=== PATIENT | female | born 1945 | race Asian ===

== ENCOUNTER 2021-02-09 14:35 | Outpatient (CLI) | payer MEDICARE, OTHER ==
--- NOTE | 2021-02-09 14:56 | XRAY Report ---
PROCEDURE: Chest 2 View X-Ray INDICATIONS: Dry cough, shortness of breath TECHNIQUE: 2 view(s) of the chest. COMPARISON: None. FINDINGS: Surgical changes and devices: None. Lungs and pleura: No pleural effusions or pneumothorax. Cephalization of pulmonary vessels with mild ly increased interstitial markings in the lungs. Mediastinum: Mediastinal contours are normal. Heart size is borderline enlarged. Bones and chest wall: No suspicious bony abnormalities. Soft tissues appear unremarkable. IMPRESSION: Borderline enlarged heart with cephalization of pulmonary vessels and slightly increased interstitial markings, findings which suggest mild cardiogenic pulmonary edema. Correlate with BNP. I nfectious small airways disease could cause a similar appearance. Reviewed by: Justice Ortega MD on 02/09/2021 2:54 PM PDT Approved by: Justice Ortega MD on 02/09/2021 2:54 PM PDT Station ID: [id number]
[2021-02-09 20:09] LABS: BASOPHILS % (AUTO) 0.9 %; EOSINOPHILS # (AUTO) 0.1 10^3/uL (0.0-0.7); HCT - HEMATOCRIT 41.9 % (37.0-47.0); HGB - HEMOGLOBIN 13.3 g/dL (12.0-16.0); LYMPHOCYTES # (AUTO) 1.3 10^3/uL (1.5-3.5); LYMPHOCYTES % (AUTO) 28.4 %; MEAN CORPUSCULAR HEMOGLOBIN 28.8 pg (27.0-31.0); MEAN CORPUSCULAR HGB CONC 31.7 g/dL (32.0-36.0); MEAN CORPUSCULAR VOLUME 90.7 fL (81.0-99.0); MONOCYTES # (AUTO) 0.6 10^3/uL (0.0-1.0); MONOCYTES % (AUTO) 13.5 %; NEUTROPHILS # (AUTO) 2.5 10^3/uL (1.5-6.6); PLT - PLATELET COUNT 252 10^3/uL (130-450); RED BLOOD COUNT 4.62 10^6/uL (4.20-5.40); RED CELL DISTRIBUTION WIDTH 13.3 % (12.0-15.0); WHITE BLOOD COUNT 4.5 x10^3/uL (4.8-10.8)
[2021-02-09 20:17] LABS: ALBUMIN 3.8 g/dL (3.2-5.5); ALBUMIN/GLOBULIN RATIO 1.1 (1.0-2.2); BILIRUBIN,TOTAL 0.6 mg/dL (0.2-1.0); CALCIUM 8.9 mg/dL (8.5-10.3); CREATININE 0.7 mg/dL (0.4-1.0); POTASSIUM 3.6 mmol/L (3.5-5.0); TOTAL PROTEIN 7.3 g/dL (6.7-8.2)
== END 2021-02-09 14:36 | disposition home or self-care (01) ==
LOC: DI.S 14:35
PROVIDERS: ATTEND Physician Assistant Medical
DX: R91.8 Other nonspecific abnormal finding of lung field (principal); U07.1 COVID-19; I50.1 Left ventricular failure, unspecified; R06.02 Shortness of breath; I50.9 Heart failure, unspecified; R50.9 Fever, unspecified; I51.7 Cardiomegaly
CPT/HCPCS: 36415; 71046; 80053; 83880; 85025; U0004

== ENCOUNTER 2021-02-13 08:55 | Outpatient (CLI) | payer MEDICARE, OTHER | END 2021-02-13 08:56 | disposition critical access hospital (66) | LOC: EMS 08:55 | DX: R53.1 Weakness (principal); R06.00 Dyspnea, unspecified | CPT/HCPCS: A0425; A0427 ==

== ENCOUNTER 2021-02-13 09:33 | Emergency (ER) | payer MEDICARE, OTHER ==
[2021-02-13] MEDS ORDERED: SODIUM CHLORIDE 0.9% 1,000 ML IV STA ×2 (09:54→11:35)
[2021-02-13] MEDS ORDERED: IBUPROFEN 800 MG TABLET PO STA (09:54)
[2021-02-13] MEDS ORDERED: ACETAMINOPHEN 325 MG TABLET PO STA (09:54)
[2021-02-13 10:29] LABS: BASOPHILS % (AUTO) 0.3 %; HCT - HEMATOCRIT 38.5 % (37.0-47.0); HGB - HEMOGLOBIN 12.8 g/dL (12.0-16.0); LYMPHOCYTES # (AUTO) 0.7 10^3/uL (1.5-3.5); LYMPHOCYTES % (AUTO) 19.3 %; MEAN CORPUSCULAR HEMOGLOBIN 29.2 pg (27.0-31.0); MEAN CORPUSCULAR HGB CONC 33.2 g/dL (32.0-36.0); MEAN CORPUSCULAR VOLUME 87.7 fL (81.0-99.0); MONOCYTES # (AUTO) 0.3 10^3/uL (0.0-1.0); NEUTROPHILS # (AUTO) 2.6 10^3/uL (1.5-6.6); NEUTROPHILS % (AUTO) 73.1 %; PLT - PLATELET COUNT 175 10^3/uL (130-450); RED BLOOD COUNT 4.39 10^6/uL (4.20-5.40); WHITE BLOOD COUNT 3.6 x10^3/uL (4.8-10.8)
--- NOTE | 2021-02-13 10:37 | ED Physician Documentation ---
History of Present Illness - Stated complaint Stated Complaint: C+/WEAKNESS - Chief complaint Chief Complaint: Resp - History obtained from History obtained from: Patient, EMS - Additonal information Additional information: Patient comes emergency department chief complaint of feeling weak and Covid positive. Patient states she was just diagnosed with Covid about 4 days ago At the [facility]. She states she is not sure how many days she had been sick before that or if she had any sick contacts. Patient states that she is gradually felt worse over the course of the last several days. She lives at home with her . She is feels "a little" short of breath but mostly has been coughing. She also has been running fevers and states she just feels "out of it". She has a history of diabetes, but no hypertension or cardiac history. Patient is not obese. She denies nausea or vomiting. No body aches. No other complaints at this time. Review of Systems Ten Systems: 10 systems reviewed and negative Constitutional: reports: Fever, Fatigue Eyes: reports: Reviewed and negative Ears: reports: Reviewed and negative Nose: reports: Reviewed and negative Throat: reports: Reviewed and negative Cardiac: reports: Reviewed and negative Respiratory: reports: Dyspnea, Cough GI: reports: Reviewed and negative : reports: Reviewed and negative Skin: reports: Reviewed and negative Musculoskeletal: reports: Reviewed and negative Neurologic: reports: Reviewed and negative Psychiatric: reports: Reviewed and negative Endocrine: reports: Reviewed and negative Immunocompromised: reports: Reviewed and negative PD PAST MEDICAL HISTORY - Past Medical History Past Medical History: Yes Cardiovascular: Hypertension, High cholesterol Respiratory: None Neuro: None Endocrine/Autoimmune: Type 2 diabetes GI: None 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 : None HEENT: None Psych: None Musculoskeletal: None Derm: None - Past Surgical History Past Surgical History: No - Present Medications Home Medications: Ambulatory Orders Medication Instructions Recorded Confirmed Ascorbic Acid [Vitamin C] 1,000 mg PO DAILY 02/13/21 02/13/21 Aspirin EC [Ecotrin] 325 mg PO DAILY 02/13/21 02/13/21 Azithromycin [Zithromax] 0 mg PO DAILY #6 tablet 02/13/21 Cholecalciferol [Vitamin D3] 10,000 unit PO DAILY 02/13/21 02/13/21 Insulin NPH Human [NovoLIN N] 16 unit SUBQ QPM 02/13/21 02/13/21 Ivermectin 2 mg PO DAILY 02/13/21 02/13/21 Melatonin 10 mg PO HS 02/13/21 02/13/21 Potassium Chloride [K-Dur] 20 meq PO BIDWM #14 tablet 02/13/21 Pravastatin [Pravachol] 20 mg ORAL DAILY PM 02/13/21 02/13/21 hydroCHLOROthiazide [Hydrodiuril] 12.5 mg PO DAILY 02/13/21 02/13/21 metFORMIN [Glucophage] 500 mg PO BIDWM 02/13/21 02/13/21 - Allergies Allergies/Adverse Reactions: Allergies Allergy/AdvReac Type Severity Reaction Status Date / Time Sulfa (Sulfonamide Allergy Unknown Verified 02/13/21 09:44 Antibiotics) - Social History Does the pt smoke?: No Smoking Status: Never smoker Does the pt drink ETOH?: No Does the pt have substance abuse?: No - Immunizations Immunizations are current?: No PD ED PE NORMAL - Vitals Vital signs reviewed: Yes - General General: Alert and oriented X 3, No acute distress, Well developed/nourished - HEENT HEENT: Atraumatic, PERRL, EOMI, Moist mucous membranes - Neck Neck: Supple, no meningeal sign - Cardiac Cardiac: RRR, No murmur, Strong equal pulses - Respiratory Respiratory: No respiratory distress, Other (Rales bilateral bases) - Abdomen Abdomen: Soft, Non tender, Non distended - Derm Derm: Normal color, Warm and dry, No rash - Extremities Extremities: No deformity, No edema, No calf tenderness / cord - Neuro Neuro: animal 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, No motor deficit, No sensory deficit, Other (Drowsy, but answers questions clearly.) - Psych Psych: Normal mood, Normal affect Results - Vitals Vitals: Vital Signs - 24 hr 02/13/21 02/13/21 02/13/21 09:44 10:01 10:40 Temperature 38.9 C H 39.2 C H Heart Rate 74 75 62 Respiratory 19 22 18 Rate Blood Pressure 179/67 H 147/61 H 131/70 H O2 Saturation 98 95 99 02/13/21 02/13/21 02/13/21 11:09 13:20 14:00 Temperature 37.9 C 37.4 C 37.2 C Heart Rate 75 64 56 L Respiratory 22 16 19 Rate Blood Pressure 142/54 H 149/58 H 132/59 H O2 Saturation 96 96 95 02/13/21 15:18 Temperature 37.0 C Heart Rate 60 Respiratory 15 Rate Blood Pressure 138/58 H O2 Saturation 96 Oxygen O2 Source Room air - Labs Labs: Laboratory Tests 02/13/21 02/13/21 02/13/21 10:21 10:21 10:21 WBC 3.6 L RBC 4.39 Hgb 12.8 Hct 38.5 MCV 87.7 MCH 29.2 MCHC 33.2 RDW 13.0 Plt Count 175 MPV 9.0 Neut # (Auto) 2.6 Lymph # (Auto) 0.7 L Leslie # (Auto) 0.3 Eos # (Auto) 0.0 Baso # (Auto) 0.0 Absolute Nucleated RBC 0.00 Nucleated RBC % 0.0 Sodium 133 L Potassium 3.1 L Chloride 96 L Carbon Dioxide 26 Anion Gap 11.0 BUN 16 Creatinine 0.6 Estimated GFR (MDRD) 98 Glucose 151 H Lactic Acid 1.0 Calcium 8.1 L Total Bilirubin 0.8 AST 28 ALT 24 Alkaline Phosphatase 57 Total Protein 6.5 L Albumin 3.3 Globulin 3.2 Albumin/Globulin Ratio 1.0 Lipase 39 Nasal Adenovirus (PCR) Nasal B. parapertussis DNA (PCR) Nasal Coronavir 229E PCR Nasal Coronavir HKU1 PCR Nasal Coronavir NL63 PCR Nasal Coronavir OC43 PCR Nasal Enterovir/Rhinovir PCR Nasal Influenza B PCR Nasal Influenza A PCR Nasal Parainfluen 1 PCR Nasal Parainfluen 2 PCR Nasal Parainfluen 3 PCR Nasal Parainfluen 4 PCR Nasal RSV (PCR) Nasal B.pertussis DNA PCR Nasal C.pneumoniae (PCR) Shun Human Metapneumo PCR Nasal M.pneumoniae (PCR) Nasal SARS-CoV-2 (PCR) Serum Ketones NEGATIVE 02/13/21 10:40 WBC RBC Hgb Hct MCV MCH MCHC RDW Plt Count MPV Neut # (Auto) Lymph # (Auto) Leslie # (Auto) Eos # (Auto) Baso # (Auto) Absolute Nucleated RBC Nucleated RBC % Sodium Potassium Chloride Carbon Dioxide Anion Gap BUN Creatinine Estimated GFR (MDRD) Glucose Lactic Acid Calcium Total Bilirubin AST ALT Alkaline Phosphatase Total Protein Albumin Globulin Albumin/Globulin Ratio Lipase Nasal Adenovirus (PCR) NOT DETECTED Nasal B. parapertussis DNA (PCR) NOT DETECTED Nasal Coronavir 229E PCR NOT DETECTED Nasal Coronavir HKU1 PCR NOT DETECTED Nasal Coronavir NL63 PCR NOT DETECTED Nasal Coronavir OC43 PCR NOT DETECTED Nasal Enterovir/Rhinovir PCR NOT DETECTED Nasal Influenza B PCR NOT DETECTED Nasal Influenza A PCR NOT DETECTED Nasal Parainfluen 1 PCR NOT DETECTED Nasal Parainfluen 2 PCR NOT DETECTED Nasal Parainfluen 3 PCR NOT DETECTED Nasal Parainfluen 4 PCR NOT DETECTED Nasal RSV (PCR) NOT DETECTED Nasal B.pertussis DNA PCR NOT DETECTED Nasal C.pneumoniae (PCR) NOT DETECTED Shun Human Metapneumo PCR NOT DETECTED Nasal M.pneumoniae (PCR) NOT DETECTED Nasal SARS-CoV-2 (PCR) DETECTED A Serum Ketones - Rads (name of study) cxr Radiology: Final report received, EMP read indepedently, See rad report PD MEDICAL DECISION MAKING - ED course Complexity details: reviewed results, re-evaluated patient, considered differential, d/w patient ED course: The patient was significantly febrile in the emergency department, but was not hypotensive or tachycardic. She was treated with ibuprofen, Tylenol, and IV fluids, and worked up with labs, including blood cultures, lactate, and serum ketones, and also, she was worked up with chest x-ray and respiratory PCR panel. The patient was found to be feeling much better after IV fluids and defervesced since. She was positive for Covid which was not surprising. Her lactic acid level and serum ketones were both negative. Laboratory studies were otherwise unremarkable except for a mildly decreased potassium at 3.1. She was given replacement for this. Her chest x-ray did show possible pneumonia superimposed on patchy viral changes in both lungs, and so she was given IV anti biotics for this. I discussed with the patient and her the findings. 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 We have also discussed the usual indications for return. Departure - Departure Disposition: 01 Home, Self Care Clinical Impression: COVID Pneumonia Qualifiers: Pneumonia type: due to unspecified organism Laterality: bilateral Lung location: lower lobe of lung Qualified Code(s): J18.9 - Pneumonia, unspecified organism Condition: Stable Instructions: ED Pneumonia Adult, COVID-19 [facility] Prescriptions: Potassium Chloride [K-Dur] 20 meq PO BIDWM #14 tablet Azithromycin [Zithromax] 0 mg PO DAILY #6 tablet Comments: Your labs look quite good today. Your chest x-ray shows some findings that are consistent with Covid, but since a small area of pneumonia from bacterial source cannot be ruled out, we have started you on antibiotics out of an abundance of caution. At this point in time, your oxygen levels are good and your other vital signs also look good. You were found to have a significant fever today and have been treated for that with Tylenol and ibuprofen. You were also given 2 L of IV fluids. It is very important that you stay hydrated while you are sick. You should be aiming to drink 8 to 10 cups of water every day. You should also consider taking Tylenol 650 mg every 4 hours and/or ibuprofen 600 mg every 6 hours as needed for fever. This will help you feel better and also help prevent dehydration. If you feel as though you are becoming very short of breath, especially increasingly so, you should return for reevaluation. Please quarantine until you are feeling better or for 2 weeks, which ever is longer. Anybody who lives in your household should also quarantine, especially if unvaccinated. Discharge Date/Time: 02/13/21 15:12
--- NOTE | 2021-02-13 10:40 | XRAY Report ---
PROCEDURE: Chest 1 View X-Ray INDICATIONS: Chest pain TECHNIQUE: One view of the chest was acquired. COMPARISON: 02/09/2021 FINDINGS: Surgical changes and devices: None. Lungs and pleura: New patchy increased interstitial and air space opacities in both lungs, slightly m ore pronounced on the right. No visible pleural effusion or findings or pneumothorax. Mediastinum: Mediastinal contours appear normal. Heart size is normal. Bones and chest wall: No suspicious bony lesions. Overlying soft tissues appear unremarkable. IMPRESSION: New patchy increased interstitial and airspace opacities. Findings would be consistent with COVID-19 pneumonia in the appropriate clinical setting, although any viral or bacterial pneumonia could cause a similar appearance, in addition to pulmonary edema. Reviewed by: Justice Ortega MD on 02/13/2021 10:39 AM PDT Approved by: Justice Ortega MD on 02/13/2021 10:39 AM PDT Station ID: [id number]
[2021-02-13 10:45] LABS: ALBUMIN 3.3 g/dL (3.2-5.5); ALKALINE PHOSPHATASE 57 IU/L (42-121); ALT ALANINE AMINOTRANSFERASE 24 IU/L (10-60); AST ASPARTATE AMINOTRANSFERASE 28 IU/L (10-42); BILIRUBIN,TOTAL 0.8 mg/dL (0.2-1.0); BUN - BLOOD UREA NITROGEN 16 mg/dL (6-20); CALCIUM 8.1 mg/dL (8.5-10.3); CARBON DIOXIDE - CO2 26 mmol/L (21-32); CHLORIDE 96 mmol/L (101-111); CREATININE 0.6 mg/dL (0.4-1.0); GFR - MDRD 98 (>89); GLUCOSE 151 mg/dL (70-100); LIPASE 39 U/L (22-51); POTASSIUM 3.1 mmol/L (3.5-5.0); SODIUM 133 mmol/L (135-145); TOTAL PROTEIN 6.5 g/dL (6.7-8.2)
[2021-02-13 10:49] LABS: KETONES, SERUM (ACETEST) NEGATIVE (NEGATIVE)
[2021-02-13] MEDS ORDERED: POTASSIUM CHLORIDE 20 MEQ TABLET PO STA (11:33)
[2021-02-13] MEDS ORDERED: AZITHROMYCIN 250 MG TABLET PO STA (11:35)
[2021-02-13] MEDS ORDERED: cefTRIAXone 2 GM in SODIUM CHLORIDE 0.9% MINIBAG 100 ML IV STA (11:35)
[2021-02-13 11:42] LABS: CORONAVIRUS 229E-RESP PCR NOT DETECTED; CORONAVIRUS HKU1-RESP PCR NOT DETECTED; CORONAVIRUS NL63-RESP PCR NOT DETECTED; CORONAVIRUS OC43-RESP PCR NOT DETECTED
[2021-02-13 11:43] LABS: B. PARAPERTUSSIS- RESP PCR PAN NOT DETECTED; B. PERTUSSIS- RESP PCR PANEL NOT DETECTED; C. PNEUMONIAE- RESP PCR PANEL NOT DETECTED; HUMAN METAPNEUMOVIRUS NOT DETECTED; INFLUENZA A- RESP PCR PANEL NOT DETECTED; INFLUENZA B - RESP PCR PANEL NOT DETECTED; M. PNEUMONIAE- RESP PCR PANEL NOT DETECTED; PARAINFLUENZA VIRUS 1 NOT DETECTED; PARAINFLUENZA VIRUS 2 NOT DETECTED; PARAINFLUENZA VIRUS 3 NOT DETECTED; PARAINFLUENZA VIRUS 4 NOT DETECTED; RHINOVIRUS/ENTEROVIRUS NOT DETECTED; RSV- RESP PCR PANEL NOT DETECTED; SARS-CoV-2 -RESP PCR PANEL DETECTED
[2021-02-13] MEDS ORDERED: cefTRIAXone 2 GM VIAL ONE (11:50)
[2021-02-13] MEDS ORDERED: [UNRECOGNIZED DRUG - OTHER] IV ONE (12:15)
[2021-02-13 15:27] VITALS: BP 138/58
== END 2021-02-13 15:12 | disposition home or self-care (01) ==
LOC: EDUNIT# → ED 09:33
DX: U07.1 COVID-19 (principal); J12.82 Pneumonia due to coronavirus disease 2019; I10 Essential (primary) hypertension; E11.9 Type 2 diabetes mellitus without complications; Z79.4 Long term (current) use of insulin
CPT/HCPCS: 36415; 71045; 80053; 82009; 83605; 83690; 85025; 87040; 87631; 96361; 96365; 99284; A9270; J7040; M0243; Q0243; 0202U

== ENCOUNTER 2022-02-06 13:44 | Outpatient (CLI) | payer MEDICARE, OTHER ==
--- NOTE | 2022-02-06 15:11 | XRAY Report ---
PROCEDURE: Calcaneus LT INDICATIONS: ACUTE ACHILLES TENDON PAIN TECHNIQUE: Two views of the calcaneus were acquired. COMPARISON: None FINDINGS: Bones: No fractures or dislocations. No suspicious bony lesions. Calcaneal spurring is present. Soft tissues: No suspicious calcifications. Achilles tendon appears normal. IMPRESSION: Calcaneal spurring is present, which may indicate plantar fasciitis. This could be further assessed w ith MRI, if clinically indicated. No acute fracture. No osseous lesion. If symptoms and/or clinical s uspicion for pathology continue, further assessment with repeat plain films, or advanced imaging (e.g ., CT, MRI, or bone scan) is recommended for further assessment. Reviewed by: Annie Knowles MD on 02/06/2022 3:09 PM PDT Approved by: Annie Knowles MD on 02/06/2022 3:09 PM PDT Station ID: [id number]
== END 2022-02-06 13:45 | disposition home or self-care (01) ==
LOC: DI 13:44
PROVIDERS: ATTEND Podiatrist
DX: M67.874 Other specified disorders of tendon, left ankle and foot (principal); M77.32 Calcaneal spur, left foot

== ENCOUNTER 2022-03-19 08:24 | Outpatient (CLI) | payer MEDICARE, OTHER ==
--- NOTE | 2022-03-19 20:18 | MRI Report ---
PROCEDURE: Lower Leg (Tib-Fib) LT W/O INDICATIONS: ACHILLES TENDONITIS TECHNIQUE: Noncontrast coronal and sagittal T1 spin echo and STIR; axial T1 spin echo and T2 fast spin echo with fat saturation through the left lower leg. COMPARISON: Left calcaneus radiographs 02/06/2022 FINDINGS: Image quality: Excellent. Bones: The visualized bone marrow demonstrates normal signal on all sequences. The overlying cortex appears intact. No fractures lines or intra-osseous lesions. Soft tissues: There is marked thickening of the Achilles tendon just distal to the myotendinous junc tion with intrasubstance fluid signal intensity, consistent with tendinosis and superimposed partial tearing. The calcaneal insertion is only partially included, but appears intact. The plantaris tendon is not definitely visualized. Trace fluid is seen between the medial head of gastrocnemius muscle an d the soleus muscle. Mild generalized grade 2 fatty infiltration of the lower leg musculature without significant loss of muscle bulk. Subcutaneous soft tissue edema is seen throughout the distal lower leg. IMPRESSION: 1.Partial intrasubstance tearing of the Achilles tendon near the myotendinous junction superimposed o n chronic tendinosis. 2.Plantaris tendon is not well-visualized and is likely completely torn. Reviewed by: Lincoln Yung MD on 03/19/2022 7:17 PM VINOD Approved by: Lincoln Yung MD on 03/19/2022 7:17 PM VINOD Station ID: [id number]
== END 2022-03-19 08:25 | disposition home or self-care (01) ==
LOC: DI 08:24
PROVIDERS: ATTEND Podiatrist
DX: S86.012A Strain of left Achilles tendon, initial encounter (principal)

== ENCOUNTER 2022-04-03 11:28 | Outpatient (CLI) | payer MEDICARE, OTHER ==
[2022-04-03 14:54] LABS: BILIRUBIN,URINE NEGATIVE (NEGATIVE); GLUCOSE, URINE (UA) >=1000 mg/dL (NEGATIVE); KETONES,URINE (UA) TRACE mg/dL (NEGATIVE); LEUKOCYTE ESTERASE, URINE NEGATIVE (NEGATIVE); NITRITE,URINE NEGATIVE (NEGATIVE); OCCULT BLOOD,URINE SMALL (NEGATIVE); PROTEIN,URINE NEGATIVE (NEGATIVE); UROBILINOGEN,URINE 0.2 (NORMAL) E.U./dL (NORMAL)
[2022-04-03 14:57] LABS: CLARITY,URINE CLEAR (CLEAR)
[2022-04-03 15:11] LABS: BACTERIA,URINE Few /HPF (None Seen); RBC,URINE 0-5 /HPF (0-5); SQUAMOUS EPITHELIAL CELL,UR NONE SEEN (<= Few); WBC,URINE 0-3 /HPF (0-5)
== END 2022-04-03 23:59 | disposition home or self-care (01) ==
LOC: LAB.S 11:28
PROVIDERS: ATTEND Emergency Medicine
DX: R30.0 Dysuria (principal)
CPT/HCPCS: 81001; 87086

== ENCOUNTER 2022-04-11 14:50 | Outpatient (CLI) | payer MEDICARE, OTHER ==
[2022-04-11 19:43] LABS: BILIRUBIN,URINE NEGATIVE (NEGATIVE); GLUCOSE, URINE (UA) >=1000 mg/dL (NEGATIVE); KETONES,URINE (UA) NEGATIVE (NEGATIVE); LEUKOCYTE ESTERASE, URINE NEGATIVE (NEGATIVE); NITRITE,URINE NEGATIVE (NEGATIVE); OCCULT BLOOD,URINE TRACE-INTA (NEGATIVE); PROTEIN,URINE NEGATIVE (NEGATIVE); UROBILINOGEN,URINE 0.2 (NORMAL) E.U./dL (NORMAL)
[2022-04-11 20:05] LABS: BACTERIA,URINE None Seen /HPF (None Seen); CLARITY,URINE CLEAR (CLEAR); RBC,URINE None Seen /HPF (0-5); SQUAMOUS EPITHELIAL CELL,UR NONE SEEN (<= Few); WBC,URINE 0-3 /HPF (0-5)
== END 2022-04-11 14:51 | disposition home or self-care (01) ==
LOC: LAB.S 14:50
PROVIDERS: ATTEND Emergency Medicine
DX: R30.0 Dysuria (principal); R31.9 Hematuria, unspecified
CPT/HCPCS: 81001; 87086

== ENCOUNTER 2022-07-28 06:02 | Outpatient (CLI) | payer MEDICARE, OTHER | END 2022-07-28 06:03 | disposition critical access hospital (66) | LOC: EMS 06:02 | DX: R53.1 Weakness (principal); R50.9 Fever, unspecified | CPT/HCPCS: A0425; A0429 ==

== ENCOUNTER 2022-07-28 06:35 | Emergency (ER) | payer MEDICARE, OTHER ==
--- OUTSIDE RECORDS SUMMARY | 2022-07-28 07:11 | EXTERNAL MEDICAL SUMMARY RPT | Continuity of Care Document ---
:1945 Author Organization [facility] Address [address] [place] [address] Phone Care Team Providers Name Role Phone Unavailable Unavailable Unavailable Manuel Patient Registrar, Maya Unavailable Unavailab Gem Vital, Sarthak Unavailable Unavailable Mahogany Rn, Or, Ana Unavailable Unavailable Mahogany Rn, Or, Ana Unavailable Unavailable Manuel Patient Registrar, Maya Unavailable Unavailab kostas Vides Rn, Or, Ana Unavailable Unavailable Mahogany Rn, Or, Ana Unavailable Unavailable Mahogany Rn, Or, Ana Unavailable Unavailable Allergies and Intolerances date description facility type (no date) CHLOÉ INHIBITORS [facility] (unknown) Services Ronen (no date) GLYBURIDE [facility] (unknown) Services Ronen Encounters No information. Functional Status No information. Immunizations No information. Medications date description facility 2022-04-30 00:00 insulin regular hum u-500 conc [facility] 2022-05-01 00:00 insulin regular hum u-500 conc [facility] Services [facility] 2022-06-17 00:00 insulin regular hum u-500 conc [facility] Ancillary Services [facility] 2022-06-17 00:00 insulin regular hum u-500 conc [facility] Services [facility] 2022-06-19 00:00 insulin regular hum u-500 conc [facility] Services [facility] 2022-06-19 00:00 insulin regular hum u-500 conc [facility] Services [facility] 2022-06-19 00:00 insulin regular hum u-500 conc [facility] Services C georgiana 2022-06-19 00:00 insulin regular hum u-500 conc [facility] Services [facility] 2022-06-20 00:00 insulin regular hum u-500 conc [facility] Anc[facility] Services sara 2022-06-17 00:00 insulin glargine [facility] Anc[facility] Services [facility] sara 2022-06-17 00:00 insulin glargine [facility] Anc[facility] Services C sara 2022-06-19 00:00 insulin glargine [facility] Anc[facility] Services C sara 2022-06-19 00:00 insulin glargine [facility] Services C sara 2022-06-19 00:00 insulin glargine [facility] Services C sara 2022-06-19 00:00 insulin glargine [facility] Services C sara 2022-06-20 00:00 insulin glargine [facility] Services C sara 2022-04-30 00:00 hydrochlorothiazide [facility] Anc[facility] Services C sara 2022-05-01 00:00 hydrochlorothiazide [facility] C sara 2022-06-17 00:00 hydrochlorothiazide [facility] C sara 2022-06-17 00:00 hydrochlorothiazide [facility] C sara 2022-06-19 00:00 hydrochlorothiazide [facility] C sara 2022-06-19 00:00 hydrochlorothiazide [facility] C sara 2022-06-19 00:00 hydrochlorothiazide [facility] C sara 2022-06-19 00:00 hydrochlorothiazide [facility] C sara 2022-06-20 00:00 hydrochlorothiazide [facility] Services C sara 2022-06-17 00:00 hydrochlorothiazide [facility] C sara 2022-06-17 00:00 hydrochlorothiazide [facility] C sara 2022-06-19 00:00 hydrochlorothiazide [facility] C sara 2022-06-19 00:00 hydrochlorothiazide [facility] C sara 2022-06-19 00:00 hydrochlorothiazide [facility] C sara 2022-06-19 00:00 hydrochlorothiazide [facility] C sara 2022-06-20 00:00 hydrochlorothiazide [facility] C sara 2022-06-19 00:00 sodium,potassium,mag sulfates [facility] Services C sara 2022-06-19 00:00 sodium,potassium,mag sulfates [facility] Services C sara 2022-06-19 00:00 sodium,potassium,mag sulfates [facility] Services C sara 2022-04-30 00:00 hydrochlorothiazide [facility] C sara 2022-05-01 00:00 hydrochlorothiazide [facility] C sara 2022-06-17 00:00 hydrochlorothiazide [facility] C sara 2022-06-17 00:00 hydrochlorothiazide [facility] C sara 2022-06-19 00:00 hydrochlorothiazide [facility] C sara 2022-06-19 00:00 hydrochlorothiazide [facility] Services Jill ruiz 2022-06-19 00:00 hydrochlorothiazide [facility] C sara 2022-06-19 00:00 hydrochlorothiazide [facility] C sara 2022-06-20 00:00 hydrochlorothiazide [facility] Jill ruiz 2022-06-19 00:00 sodium,potassium,mag sulfates [facility] Services C sara 2022-06-19 00:00 sodium,potassium,mag sulfates [facility] C sara 2022-06-19 00:00 sodium,potassium,mag sulfates [facility] Services C sara 2022-04-30 00:00 insulin regular hum u-500 conc [facility] Services C sara 2022-05-01 00:00 insulin regular hum u-500 conc [facility] C sara 2022-06-17 00:00 insulin regular hum u-500 conc [facility] C sara 2022-06-17 00:00 insulin regular hum u-500 conc [facility] C sara 2022-06-19 00:00 insulin regular hum u-500 conc [facility] C sara 2022-06-19 00:00 insulin regular hum u-500 conc [facility] C sara 2022-06-19 00:00 insulin regular hum u-500 conc [facility] Services C sara 2022-06-19 00:00 insulin regular hum u-500 conc [facility] C sara 2022-06-20 00:00 insulin regular hum u-500 conc [facility] Services C sara 2022-06-17 00:00 potassium chloride [facility] Anc[facility] Services C sara 2022-06-17 00:00 potassium chloride [facility] Anc[facility] Services C sara 2022-06-19 00:00 potassium chloride [facility] Anc[facility] Services C sara 2022-06-19 00:00 potassium chloride [facility] Services C sara 2022-06-19 00:00 potassium chloride [facility] Services C sara 2022-06-19 00:00 potassium chloride [facility] Services C sara 2022-06-20 00:00 potassium chloride [facility] Services C sara 2022-06-17 00:00 insulin glargine [facility] Services C sara 2022-06-17 00:00 insulin glargine [facility] Services C sara 2022-06-19 00:00 insulin glargine [facility] Services C sara 2022-06-19 00:00 insulin glargine [facility] Services C sara 2022-06-19 00:00 insulin glargine [facility] Services C sara 2022-06-19 00:00 insulin glargine [facility] Services C sara 2022-06-20 00:00 insulin glargine [facility] C sara 2022-04-30 00:00 insulin regular hum u-500 conc [facility] C sara 2022-05-01 00:00 insulin regular hum u-500 conc [facility] C sara 2022-06-17 00:00 insulin regular hum u-500 conc [facility] C sara 2022-06-17 00:00 insulin regular hum u-500 conc [facility] C sara 2022-06-19 00:00 insulin regular hum u-500 conc [facility] C sara 2022-06-19 00:00 insulin regular hum u-500 conc [facility] C sara 2022-06-19 00:00 insulin regular hum u-500 conc [facility] C sara 2022-06-19 00:00 insulin regular hum u-500 conc [facility] C sara 2022-06-20 00:00 insulin regular hum u-500 conc [facility] C sara 2022-06-17 00:00 potassium chloride [facility] Anc[facility] Services C sara 2022-06-17 00:00 potassium chloride [facility] Anc[facility] Services C sara 2022-06-19 00:00 potassium chloride [facility] Anc[facility] Services C sara 2022-06-19 00:00 potassium chloride [facility] Anc[facility] Services C sara 2022-06-19 00:00 potassium chloride [facility] Prim [facility] & Anc[facility] Services C sara 2022-06-19 00:00 potassium chloride Walk[facility]In Clinic [facility] Care & Ancillary Services C sara 2022-06-20 00:00 potassium chloride Walk[facility]In Clinic [facility] Care & Ancillary Services C sara 2022-06-17 00:00 insulin glargine [facility] Care & Ancillary Services C sara 2022-06-17 00:00 insulin glargine [facility] Care [facility] Ancillary Services C sara 2022-06-19 00:00 insulin glargine Walk[facility]In Clinic [facility] Care & Ancillary Services C sara 2022-06-19 00:00 insulin glargine Walk[facility]In [facility] Care & Ancillary Services C sara 2022-06-19 00:00 insulin glargine Walk[facility]In [facility] Care & Ancillary Services C sara 2022-06-19 00:00 insulin glargine Walk[facility]In Clinic [facility] Care & Ancillary Services C sara 2022-06-20 00:00 insulin glargine Walk[facility]In [facility] Care & Ancillary Services C sara 2022-04-30 00:00 insulin regular hum u-500 conc [facility] Ancillary Services C sara 2022-05-01 00:00 insulin regular hum u-500 conc [facility] Services C sara 2022-06-17 00:00 insulin regular hum u-500 conc [facility] Services C sara 2022-06-17 00:00 insulin regular hum u-500 conc [facility] Services C sara 2022-06-19 00:00 insulin regular hum u-500 conc [facility] Services C sara 2022-06-19 00:00 insulin regular hum u-500 conc [facility] Services C sara 2022-06-19 00:00 insulin regular hum u-500 conc [facility] Services C sara 2022-06-19 00:00 insulin regular hum u-500 conc [facility] Services C sara 2022-06-20 00:00 insulin regular hum u-500 conc [facility] Services C sara 2022-04-30 00:00 metformin [facility] Anc[facility] Services C sara 2022-05-01 00:00 metformin [facility] Anc[facility] Services C sara 2022-06-17 00:00 metformin [facility] Anc[facility] Services C sara 2022-06-17 00:00 metformin [facility] Anc[facility] Services C sara 2022-06-19 00:00 metformin [facility] Anc[facility] Services C sara 2022-06-19 00:00 metformin [facility] Anc[facility] Services C sara 2022-06-19 00:00 metformin [facility] Anc[facility] Services C sara 2022-06-19 00:00 metformin [facility] Anc[facility] Services C sara 2022-06-20 00:00 metformin [facility] Anc[facility] Services C sara 2022-04-30 00:00 metformin [facility] Anc[facility] Services C sara 2022-05-01 00:00 metformin [facility] Anc[facility] Services C sara 2022-06-17 00:00 metformin [facility] Anc[facility] Services C sara 2022-06-17 00:00 metformin [facility] Anc[facility] Services C sara 2022-06-19 00:00 metformin [facility] Anc[facility] Services C sara 2022-06-19 00:00 metformin [facility] Anc[facility] Services C sara 2022-06-19 00:00 metformin [facility] Anc[facility] Services C sara 2022-06-19 00:00 metformin [facility] Anc[facility] Services C sara 2022-06-20 00:00 metformin [facility]ian [facility] Ancillary Services C sara 2022-04-30 00:00 hydrochlorothiazide [facility] Anc[facility] Services C sara 2022-05-01 00:00 hydrochlorothiazide [facility] Services C sara 2022-06-17 00:00 hydrochlorothiazide [facility] Services C sara 2022-06-17 00:00 hydrochlorothiazide [facility] Services C sara 2022-06-19 00:00 hydrochlorothiazide [facility] Services C sara 2022-06-19 00:00 hydrochlorothiazide [facility] C sara 2022-06-19 00:00 hydrochlorothiazide [facility] Services C sara 2022-06-19 00:00 hydrochlorothiazide [facility] C sara 2022-06-20 00:00 hydrochlorothiazide [facility] C sara 2022-06-17 00:00 hydrochlorothiazide [facility] C sara 2022-06-17 00:00 hydrochlorothiazide [facility] C sara 2022-06-19 00:00 hydrochlorothiazide [facility] C sara 2022-06-19 00:00 hydrochlorothiazide [facility] C sara 2022-06-19 00:00 hydrochlorothiazide [facility] C sara 2022-06-19 00:00 hydrochlorothiazide [facility] C sara 2022-06-20 00:00 hydrochlorothiazide [facility] C sara 2022-04-30 00:00 hydrochlorothiazide [facility] C sara 2022-05-01 00:00 hydrochlorothiazide [facility] C sara 2022-06-17 00:00 hydrochlorothiazide [facility] C sara 2022-06-17 00:00 hydrochlorothiazide [facility] C sara 2022-06-19 00:00 hydrochlorothiazide [facility] C sara 2022-06-19 00:00 hydrochlorothiazide [facility] C sara 2022-06-19 00:00 hydrochlorothiazide [facility] C sara 2022-06-19 00:00 hydrochlorothiazide [facility] Services C sara 2022-06-20 00:00 hydrochlorothiazide Walk[facility]In Clinic [facility] Care & Ancillary Services C sara 2022-06-17 00:00 hydrochlorothiazide Walk[facility]vis charlie Care [facility] Anc[facility] Services C sara 2022-06-17 00:00 hydrochlorothiazide Walk[facility]In [facility] Care & Ancillary Services C sara 2022-06-19 00:00 hydrochlorothiazide Walk[facility] charlie Care [facility] Anc[facility] Services C sara 2022-06-19 00:00 hydrochlorothiazide Walk[facility] charlie Care [facility] Anc[facility] Services C sara 2022-06-19 00:00 hydrochlorothiazide Walk[facility]In [facility] Care & Ancillary Services C sara 2022-06-19 00:00 hydrochlorothiazide Walk[facility]In [facility] Care & Ancillary Services C sara 2022-06-20 00:00 hydrochlorothiazide [facility] Anc[facility] Services Jill ruiz 2022-06-19 00:00 sodium,potassium,mag sulfates [facility] Primary [facility] Ancillary Services C sara 2022-06-19 00:00 sodium,potassium,mag sulfates [facility] Services Jill ruiz 2022-06-19 00:00 sodium,potassium,mag sulfates [facility] Anc[facility] Services Jill ruiz 2022-06-19 00:00 sodium,potassium,mag sulfates [facility] Services Jill ruiz 2022-06-19 00:00 sodium,potassium,mag sulfates [facility] Services C sara 2022-06-19 00:00 sodium,potassium,mag sulfates [facility] Services C sara 2022-04-30 00:00 metformin [facility] Prim [facility]ian [facility] Anc[facility] Services C sara 2022-05-01 00:00 metformin [facility] Anc[facility] Services C sara 2022-06-17 00:00 metformin [facility] Anc[facility] Services C sara 2022-06-17 00:00 metformin [facility] Anc[facility] Services C sara 2022-06-19 00:00 metformin [facility] Anc[facility] Services C sara 2022-06-19 00:00 metformin [facility] Anc[facility] Services C sara 2022-06-19 00:00 metformin [facility] Anc[facility] Services C sara 2022-06-19 00:00 metformin [facility] Anc[facility] Services C sara 2022-06-20 00:00 metformin [facility] Anc[facility] Services C sara 2022-06-17 00:00 potassium chloride [facility] Anc[facility] Services C sara 2022-06-17 00:00 potassium chloride [facility] Anc[facility] Services C sara 2022-06-19 00:00 potassium chloride [facility] Prim [facility] Anc[facility] Services C sara 2022-06-19 00:00 potassium chloride [facility] Anc[facility] Services C sara 2022-06-19 00:00 potassium chloride [facility] Anc[facility] Services C sara 2022-06-19 00:00 potassium chloride [facility] Anc[facility] Services C sara 2022-06-20 00:00 potassium chloride [facility] Anc[facility] Services C sara 2022-06-17 00:00 potassium chloride [facility] Anc[facility] Services C sara 2022-06-17 00:00 potassium chloride [facility] Anc[facility] Services C sara 2022-06-19 00:00 potassium chloride [facility] Prim [facility]ian [facility] Ancillary Services C sara 2022-06-19 00:00 potassium chloride [facility] Ancillary Services C sara 2022-06-19 00:00 potassium chloride [facility] Anc[facility] Services C sara 2022-06-19 00:00 potassium chloride [facility] Anc[facility] Services C sara 2022-06-20 00:00 potassium chloride [facility] Anc[facility] Services C sara 2022-06-17 00:00 insulin glargine Walk[facility] Services C sara 2022-06-17 00:00 insulin glargine Walk[facility] Anc[facility] Services C sara 2022-06-19 00:00 insulin glargine Walk[facility]In [facility] Anc[facility] Services C sara 2022-06-19 00:00 insulin glargine Walk[facility] Anc[facility] Services C sara 2022-06-19 00:00 insulin glargine Walk[facility] Anc[facility] Services C sara 2022-06-19 00:00 insulin glargine Walk[facility] Anc[facility] Services C sara 2022-06-20 00:00 insulin glargine [facility] Anc[facility] Services C sara 2022-04-30 00:00 metformin [facility] Anc[facility] Services C sara 2022-05-01 00:00 metformin [facility] Services C sara 2022-06-17 00:00 metformin [facility] Anc[facility] Services C sara 2022-06-17 00:00 metformin [facility] Anc[facility] Services C sara 2022-06-19 00:00 metformin [facility] Anc[facility] Services C sara 2022-06-19 00:00 metformin [facility] Anc[facility] Services C sara 2022-06-19 00:00 metformin [facility] Anc[facility] Services C sara 2022-06-19 00:00 metformin [facility] Anc[facility] Services C sara 2022-06-20 00:00 metformin [facility] Anc[facility] Services C sara 2022-06-17 00:00 hydrochlorothiazide Walk[facility] Services C sara 2022-06-17 00:00 hydrochlorothiazide Walk[facility] C sara 2022-06-19 00:00 hydrochlorothiazide Walk[facility]In [facility] Anc[facility] Services C sara 2022-06-19 00:00 hydrochlorothiazide Walk[facility]In [facility] Services C sara 2022-06-19 00:00 hydrochlorothiazide Walk[facility]In [facility] Care [facility] Anc[facility] Services C sara 2022-06-19 00:00 hydrochlorothiazide Walk[facility]In Clinic [facility] Care & Ancillary Services Jill ruiz 2022-06-20 00:00 hydrochlorothiazide Walk[facility]In [facility] Care & Ancillary Services Jill ruiz Problems date description facility 2022-06-17 00:00 Hypercholesterolemia Walk-In Clinic Pr imary Care & Ancillary Ser [facility] 2022-06-17 00:00 Hypercholesterolemia Walk-In Clinic Pr imary Care & Ancillary Ser [facility] 2022-06-17 00:00 Hypercholesterolemia Walk-In Clinic Pr imary Care & Ancillary Ser [facility] 2022-06-17 00:00 Hypercholesterolemia Walk-In Clinic Pr imary Care & Ancillary Ser [facility] 2022-06-17 00:00 Hypercholesterolemia Walk-In Clinic Pr imary Care & Ancillary Ser [facility] 2022-06-17 00:00 Hypercholesterolemia Walk-In Clinic Pr imary Care & Ancillary Ser [facility] 2022-06-17 00:00 Hypercholesterolemia Walk-In Clinic Pr imary Care & Ancillary Ser [facility] 2022-06-17 00:00 Feces contents abnormal Walk-In Clinic Primary Care & Ancillary Ser [facility] 2022-06-17 00:00 Feces contents abnormal Walk-In Clinic Primary Care [facility] Ancillary Ser [facility] 2022-06-17 00:00 Feces contents abnormal Walk[facility]In Clinic Primary Care [facility] Ancillary Ser [facility] 2022-06-17 00:00 Feces contents abnormal Walk-In Clinic Primary Care [facility] Ancillary [facility] 2022-06-17 00:00 Feces contents abnormal Walk-In Clinic Primary Care [facility] Ancillary [facility] 2022-06-17 00:00 Feces contents abnormal Walk-In Clinic Primary Care [facility] Ancillary [facility] 2022-06-17 00:00 Feces contents abnormal Walk[facility]In Clinic Primary Care [facility] Anc[facility] 2022-06-17 00:00 Diabetes mellitus without mention of [facility] Primary complication, type II or unspecified Car e & Ancillary Services type, not stated as uncontrolled Thayne 2022-06-17 00:00 Diabetes mellitus without mention of [facility] Primary complication, type II or unspecified Car [facility] Ancillary Services type, not stated as uncontrolled Thayne 2022-06-17 00:00 Diabetes mellitus without mention of [facility] Primary complication, type II or unspecified Car e [facility] Anc[facility] Services type, not stated as uncontrolled Thayne 2022-06-17 00:00 Diabetes mellitus without mention of [facility] Primary complication, type II or unspecified Car e [facility] Services type, not stated as uncontrolled Thayne 2022-06-17 00:00 Diabetes mellitus without mention of [facility] Primary complication, type II or unspecified [facility] Services type, not stated as uncontrolled Thayne 2022-06-17 00:00 Diabetes mellitus without mention of [facility] Primary complication, type II or unspecified Car [facility] Services type, not stated as uncontrolled Thayne 2022-06-17 00:00 Diabetes mellitus without mention of [facility]-In Clinic Primary complication, type II or unspecified Car e [facility] Ancillary Services type, not stated as uncontrolled Thayne 2022-06-17 00:00 Pure hypercholesterolemia Walk-In Clin ic Primary Care & Ancillary Ser [facility] 2022-06-17 00:00 Pure hypercholesterolemia Walk-In Clin ic Primary Care [facility] 2022-06-17 00:00 Pure hypercholesterolemia Walk-In Clin ic Primary Care & Ancillary Ser [facility] 2022-06-17 00:00 Pure hypercholesterolemia Walk-In Clin ic Primary Care & Ancillary Ser [facility] 2022-06-17 00:00 Pure hypercholesterolemia Walk-In Clin ic Primary Care & Ancillary Ser [facility] 2022-06-17 00:00 Pure hypercholesterolemia Walk-In Clin ic Primary Care & Ancillary Ser [facility] 2022-06-17 00:00 Pure hypercholesterolemia Walk-In Clin ic Primary Care & Ancillary Ser [facility] 2022-06-17 00:00 Other and unspecified hyperlipidemia W alk-In Clinic Primary Care & Ancillary Ser [facility] 2022-06-17 00:00 Other and unspecified hyperlipidemia W alk-In Clinic Primary Care [facility] 2022-06-17 00:00 Other and unspecified hyperlipidemia W alk-In Clinic Primary Care & Anc[facility] 2022-06-17 00:00 Other and unspecified hyperlipidemia W alk-In Clinic Primary Care & Ancillary [facility] 2022-06-17 00:00 Other and unspecified hyperlipidemia W alk-In Clinic Primary Care & Ancillary [facility] 2022-06-17 00:00 Other and unspecified hyperlipidemia W alk-In Clinic Primary Care [facility] 2022-06-17 00:00 Other and unspecified hyperlipidemia W alk-In Clinic Primary Care [facility] 2022-06-17 00:00 Arthritis Walk-In [facility] Prim dian Care & Ancillary Ser [facility] 2022-06-17 00:00 Arthritis Walk-In Clinic Prim dian Care & Ancillary Ser [facility] 2022-06-17 00:00 Arthritis Walk-In Clinic Prim dian Care & Ancillary Ser [facility] 2022-06-17 00:00 Arthritis Walk-In Clinic Prim dian Care & Anc[facility] Ser [facility] 2022-06-17 00:00 Arthritis Walk-In Clinic Prim dian Care & Ancillary Ser [facility] 2022-06-17 00:00 Arthritis Walk-In Clinic Prim dian Care & Ancillary Ser [facility] 2022-06-17 00:00 Arthritis Walk-In Clinic Prim dian Care & Ancillary Ser [facility] 2022-06-17 00:00 Unspecified essential hypertension [facility] k-In Clinic Primary Care & Anc[facility] Ser [facility] 2022-06-17 00:00 Unspecified essential hypertension [facility] Primary Care [facility] 2022-06-17 00:00 Unspecified essential hypertension [facility] Primary Care [facility] 2022-06-17 00:00 Unspecified essential hypertension [facility] Primary Care [facility] 2022-06-17 00:00 Unspecified essential hypertension [facility] Primary Care [facility] 2022-06-17 00:00 Unspecified essential hypertension [facility] Primary Care [facility] 2022-06-17 00:00 Unspecified essential hypertension [facility]In [facility] Primary Care [facility] Anc[facility] 2022-06-17 00:00 Type 2 diabetes mellitus Walk-In Cl[facility] c Primary Care [facility]illary [facility] 2022-06-17 00:00 Type 2 diabetes mellitus [facility] 2022-06-17 00:00 Type 2 diabetes mellitus [facility] 2022-06-17 00:00 Type 2 diabetes mellitus [facility] 2022-06-17 00:00 Type 2 diabetes mellitus [facility] 2022-06-17 00:00 Type 2 diabetes mellitus [facility] 2022-06-17 00:00 Type 2 diabetes mellitus Walk[facility]In [facility] Care [facility] 2022-06-17 00:00 Hyperlipidemia Walk[facility] Prim dian Care & Ancillary Ser [facility] 2022-06-17 00:00 Hyperlipidemia Walk-In Clinic Prim dian Care & Ancillary Ser [facility] 2022-06-17 00:00 Hyperlipidemia Walk-In Clinic Prim dian Care & Ancillary Ser [facility] 2022-06-17 00:00 Hyperlipidemia Walk-In Clinic Prim dian Care & Ancillary Ser [facility] 2022-06-17 00:00 Hyperlipidemia Walk-In Clinic Prim dian Care & Ancillary Ser [facility] 2022-06-17 00:00 Hyperlipidemia Walk-In Clinic Prim dian Care & Ancillary Ser [facility] 2022-06-17 00:00 Hyperlipidemia Walk-In Clinic Prim dian Care & Ancillary [facility] 2022-06-17 00:00 Essential hypertension Walk-In Clinic Primary Care [facility] 2022-06-17 00:00 Essential hypertension Walk-In Clinic Primary Care [facility] 2022-06-17 00:00 Essential hypertension Walk[facility]In Clinic Primary Care [facility] 2022-06-17 00:00 Essential hypertension [facility] Primary Care [facility] Ser [facility] 2022-06-17 00:00 Essential hypertension [facility] Care [facility] 2022-06-17 00:00 Essential hypertension [facility] Primary Care [facility] Ser [facility] 2022-06-17 00:00 Essential hypertension Walk-In [facility] Primary Care [facility] 2022-06-17 00:00 Arthropathy, unspecified, site Walk[facility]In Clinic Primary unspecified Care & Ancillary Ser [facility] 2022-06-17 00:00 Arthropathy, unspecified, site Walk-In Clinic Primary unspecified Care & Ancillary Ser [facility] 2022-06-17 00:00 Arthropathy, unspecified, site [facility]:00 Arthropathy, unspecified, site Walk-In Clinic Primary unspecified Care & Ancillary Ser [facility] 2022-06-17 00:00 Arthropathy, unspecified, site Walk[facility]In Clinic Primary unspecified Care & Ancillary Ser [facility] 2022-06-17 00:00 Arthropathy, unspecified, site Walk[facility]In Clinic Primary unspecified Care & Ancillary Ser [facility] 2022-06-17 00:00 Arthropathy, unspecified, site Walk[facility]In Clinic Primary unspecified Care & Ancillary Ser [facility] 2022-06-17 00:00 Nonspecific abnormal findings in stool Walk-In Clinic Primary contents Care & Ancillary Ser [facility] 2022-06-17 00:00 Nonspecific abnormal findings in stool Walk[facility]In Clinic Primary contents Care & Ancillary Ser [facility] 2022-06-17 00:00 Nonspecific abnormal findings in stool Walk-In Clinic Primary contents Care & Ancillary Ser [facility] 2022-06-17 00:00 Nonspecific abnormal findings in stool Walk-In Clinic Primary contents Care & Ancillary Ser [facility] 2022-06-17 00:00 Nonspecific abnormal findings in stool Walk-In Clinic Primary contents Care & Ancillary Ser [facility] 2022-06-17 00:00 Nonspecific abnormal findings in stool Walk-In Clinic Primary contents Care & Ancillary Ser [facility] 2022-06-17 00:00 Nonspecific abnormal findings in stool Walk-In Clinic Primary contents Care & Ancillary Ser [facility] 2022-06-17 00:00 Type 2 diabetes mellitus without Walk- In Clinic Primary complications Care & Ancillary Ser [facility] 2022-06-17 00:00 Type 2 diabetes mellitus without Walk- In Clinic Primary complications Care & Ancillary Ser [facility] 2022-06-17 00:00 Type 2 diabetes mellitus without Walk- In Clinic Primary complications Care & Ancillary Ser [facility] 2022-06-17 00:00 Type 2 diabetes mellitus without Walk- In Clinic Primary complications Care & Ancillary Ser [facility] 2022-06-17 00:00 Type 2 diabetes mellitus without Walk- In Clinic Primary complications Care & Ancillary Ser [facility] 2022-06-17 00:00 Type 2 diabetes mellitus without Walk- In Clinic Primary complications Care & Ancillary [facility] 2022-06-17 00:00 Type 2 diabetes mellitus without Walk- In Clinic Primary complications Care & Ancillary [facility] 2022-06-17 00:00 Hyperlipidemia, unspecified Walk-In Cl in Primary Care & Ancillary [facility] 2022-06-17 00:00 Hyperlipidemia, unspecified Walk-In Cl in Primary Care & Ancillary [facility] 2022-06-17 00:00 Hyperlipidemia, unspecified Walk-In Cl in Primary Care & Ancillary [facility] 2022-06-17 00:00 Hyperlipidemia, unspecified Walk-In Cl in Primary Care & Ancillary [facility] 2022-06-17 00:00 Hyperlipidemia, unspecified Walk-In Cl in Primary Care & Ancillary [facility] 2022-06-17 00:00 Hyperlipidemia, unspecified Walk-In Cl in Primary Care & Ancillary [facility] 2022-06-17 00:00 Hyperlipidemia, unspecified Walk-In Cl in Primary Care & Ancillary [facility] 2022-06-17 00:00 Disorder of bile acid and cholesterol Walk-In Clinic Primary metabolism, unspecified Care & [facility] 2022-06-17 00:00 Disorder of bile acid and cholesterol Walk[facility]In Clinic Primary metabolism, unspecified Care [facility] 2022-06-17 00:00 Disorder of bile acid and cholesterol Walk[facility]In Clinic Primary metabolism, unspecified Care [facility] 2022-06-17 00:00 Disorder of bile acid and cholesterol [facility]In [facility] Primary metabolism, unspecified [facility] 2022-06-17 00:00 Disorder of bile acid and cholesterol [facility]In Clinic Primary metabolism, unspecified Care [facility] 2022-06-17 00:00 Disorder of bile acid and cholesterol [facility]In Clinic Primary metabolism, unspecified Care [facility] 2022-06-17 00:00 Disorder of bile acid and cholesterol [facility]In [facility] Primary metabolism, unspecified Care [facility] 2022-06-17 00:00 Essential (primary) hypertension Walk- In Clinic Primary Care & Ancillary [facility] 2022-06-17 00:00 Essential (primary) hypertension Walk- In Clinic Primary Care & Ancillary Ser [facility] 2022-06-17 00:00 Essential (primary) hypertension Walk- In Clinic Primary Care & Ancillary [facility] 2022-06-17 00:00 Essential (primary) hypertension Walk- In Clinic Primary Care & Ancillary [facility] 2022-06-17 00:00 Essential (primary) hypertension Walk- In Clinic Primary Care & Ancillary [facility] 2022-06-17 00:00 Essential (primary) hypertension Walk- In Clinic Primary Care & Ancillary [facility] 2022-06-17 00:00 Essential (primary) hypertension Walk- In Clinic Primary Care & Ancillary [facility] 2022-06-17 00:00 Unspecified osteoarthritis, Walk-In Cl inic Primary unspecified site Care & Ancillary [facility] 2022-06-17 00:00 Unspecified osteoarthritis, Walk-In Cl inic Primary unspecified site Care & Ancillary [facility] 2022-06-17 00:00 Unspecified osteoarthritis, Walk-In Cl inic Primary unspecified site Care & Ancillary [facility] 2022-06-17 00:00 Unspecified osteoarthritis, Walk-In Cl inic Primary unspecified site Care & Ancillary [facility] 2022-06-17 00:00 Unspecified osteoarthritis, Walk-In Cl inic Primary unspecified site Care & Ancillary [facility] 2022-06-17 00:00 Unspecified osteoarthritis, Walk-In Cl inic Primary unspecified site Care & Ancillary [facility] 2022-06-17 00:00 Unspecified osteoarthritis, Walk-In Cl inic Primary unspecified site Care & Ancillary [facility] 2022-06-17 00:00 Other fecal abnormalities Walk-In Clin ic Primary Care & Ancillary [facility] 2022-06-17 00:00 Other fecal abnormalities Walk[facility]In Clin ic Primary Care & Ancillary [facility] 2022-06-17 00:00 Other fecal abnormalities Walk-In Clin ic Primary Care & [facility] 2022-06-17 00:00 Other fecal abnormalities Walk-In Clin ic Primary Care & Ancillary [facility] 2022-06-17 00:00 Other fecal abnormalities Walk-In Clin ic Primary Care & Ancillary [facility] 2022-06-17 00:00 Other fecal abnormalities [facility] 2022-06-17 00:00 Other fecal abnormalities [facility] Procedures date description facility 2022-06-19 00:00 Visit Code Hold [facility] Prim dian [facility] 2022-06-19 00:00 Visit Code Hold [facility] 2022-06-19 00:00 Visit Code Hold [facility] 2022-06-19 00:00 Visit Code Hold [facility] Results/Labs No information. Social History date description facility 2022-06-17 00:00 Never smoker [facility] 2022-06-17 00:00 Never smoker [facility] 2022-06-17 00:00 Never smoker [facility] 2022-06-17 00:00 Never smoker [facility] 2022-06-17 00:00 Never smoker [facility] 2022-06-17 00:00 Never smoker [facility] 2022-06-17 00:00 Never smoker [facility] 2022-06-19 00:00 Never smoker [facility] 2022-06-19 00:00 Never smoker [facility] Prim [facility] 2022-06-19 00:00 Never smoker [facility] Prim [facility] 2022-06-19 00:00 Never smoker [facility] Prim dian [facility] Vital Signs date measurement value units 2022-06-19 00:00 BMI 28.42 kg/m2 2022-06-19 00:00 BP_diastolic 93 mmHg 2022-06-19 00:00 BP_systolic 189 mmHg 2022-06-19 00:00 heart_rate 83 /min 2022-06-19 00:00 height_metric 162.56 cm 2022-06-19 00:00 height_standard 64 in 2022-06-19 00:00 respiration_rate 16 /min 2022-06-19 00:00 temperature_metric 36.83 C 2022-06-19 00:00 temperature_standard 98.3 F 2022-06-19 00:00 weight_metric 74.84 kg 2022-06-19 00:00 weight_standard 165 lb
[2022-07-28 07:12] LABS: VBG BASE EXCESS 2.8 mmol/L (-2 - +2); VBG PCO2 35.2 mmHg (41-51); VBG PH 7.487 (7.31-7.41); VBG PO2 93.9 mmHg (25-47); VBG TOTAL CO2 27.1 mmol/L (24-29)
[2022-07-28 07:13] LABS: VBG OXYGEN SATURATION 96.7 % (60-80)
[2022-07-28 07:16] LABS: BASOPHILS # (AUTO) 0.1 10^3/uL (0.0-0.1); BASOPHILS % (AUTO) 0.5 %; EOSINOPHILS # (AUTO) 0.2 10^3/uL (0.0-0.7); EOSINOPHILS % (AUTO) 1.3 %; HCT - HEMATOCRIT 37.7 % (37.0-47.0); LYMPHOCYTES # (AUTO) 0.6 10^3/uL (1.5-3.5); LYMPHOCYTES % (AUTO) 4.7 %; MEAN CORPUSCULAR HEMOGLOBIN 28.2 pg (27.0-31.0); MEAN CORPUSCULAR HGB CONC 31.8 g/dL (32.0-36.0); MEAN CORPUSCULAR VOLUME 88.5 fL (81.0-99.0); MEAN PLATELET VOLUME 9.1 fL (7.9-10.8); MONOCYTES # (AUTO) 0.5 10^3/uL (0.0-1.0); MONOCYTES % (AUTO) 3.6 %; NEUTROPHILS # (AUTO) 11.7 10^3/uL (1.5-6.6); NEUTROPHILS % (AUTO) 89.5 %; PLT - PLATELET COUNT 295 10^3/uL (130-450); RED BLOOD COUNT 4.26 10^6/uL (4.20-5.40); RED CELL DISTRIBUTION WIDTH 13.4 % (12.0-15.0)
[2022-07-28] MEDS ORDERED: ACETAMINOPHEN 500 MG TABLET PO STA (07:16)
[2022-07-28 07:19] LABS: ALBUMIN 3.6 g/dL (3.2-5.5); ALBUMIN/GLOBULIN RATIO 1.1 (1.0-2.2); CALCIUM 8.5 mg/dL (8.5-10.3); CREATININE 0.7 mg/dL (0.4-1.0); MAGNESIUM 1.7 mg/dL (1.7-2.8); PHOSPHORUS 2.6 mg/dL (2.5-4.6); POTASSIUM 3.7 mmol/L (3.5-5.0); TOTAL PROTEIN 6.8 g/dL (6.7-8.2)
--- NOTE | 2022-07-28 07:19 | ED Physician Documentation ---
History of Present Illness - Stated complaint Stated Complaint: COUGH/CHILLS - Chief complaint Chief Complaint: Fever - History obtained from History obtained from: Patient, EMS - Additonal information Additional information: 77-year-old woman with type 2 diabetes developed shaking chills yesterday afternoon with a cough productive of green sputum. She is not short of breath. She denies urinary complaints. Review of Systems Constitutional: reports: Fever, Chills, Fatigue Cardiac: denies: Chest pain / pressure Respiratory: reports: Cough. 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 : None HEENT: None Psych: None Musculoskeletal: None Derm: None - Past Surgical History Past Surgical History: No - Present Medications Home Medications: Ambulatory Orders Medication Instructions Recorded Confirmed Ascorbic Acid [Vitamin C] 1,000 mg PO DAILY 02/13/21 07/28/22 Aspirin EC [Ecotrin] 325 mg PO DAILY 02/13/21 07/28/22 Cholecalciferol [Vitamin D3] 10,000 unit PO DAILY 02/13/21 07/28/22 Insulin NPH Human [NovoLIN N] 16 unit SUBQ QPM 02/13/21 07/28/22 Ivermectin 2 mg PO DAILY 02/13/21 07/28/22 Melatonin 10 mg PO HS 02/13/21 07/28/22 Potassium Chloride [K-Dur] 20 meq PO BIDWM #14 tablet 02/13/21 07/28/22 Pravastatin [Pravachol] 20 mg ORAL DAILY PM 02/13/21 07/28/22 hydroCHLOROthiazide [Hydrodiuril] 12.5 mg PO DAILY 02/13/21 07/28/22 metFORMIN [Glucophage] 500 mg PO BIDWM 02/13/21 07/28/22 levoFLOXacin [Levofloxacin] 750 mg PO DAILY #9 tablet 07/28/22 - Allergies Allergies/Adverse Reactions: Allergies Allergy/AdvReac Type Severity Reaction Status Date / Time Sulfa (Sulfonamide Allergy Unknown Verified 07/28/22 06:47 Antibiotics) - Social History Does the pt smoke?: No Smoking Status: Never smoker Does the pt drink ETOH?: No Does the pt have substance abuse?: No - Immunizations Immunizations are current?: No - POLST Patient has POLST: No PD ED PE NORMAL - Vitals Vital signs reviewed: Yes (Febrile and tachycardic) - General General: Alert and oriented X 3, No acute distress, Other (Well-appearing) - HEENT HEENT: PERRL, EOMI - Neck Neck: Supple, no meningeal sign, No bony TTP - Cardiac Cardiac: RRR, No murmur - Respiratory Respiratory: Other (Crackles at the left base, nonlabored) - Abdomen Abdomen: Non tender - Extremities Extremities: No edema, No calf tenderness / cord - Neuro Neuro: Alert and oriented X 3, Normal speech Results - Vitals Vitals: Vital Signs - 24 hr 07/28/22 07/28/22 06:35 07:29 Temperature 39.6 C H Heart Rate 110 H 108 H Respiratory 18 28 H Rate Blood Pressure 163/59 H 157/54 H O2 Saturation 94 96 Oxygen O2 Source Room air - Labs Labs: Laboratory Tests 07/28/22 07/28/22 07/28/22 06:39 06:51 06:51 WBC 13.0 H RBC 4.26 Hgb 12.0 Hct 37.7 MCV 88.5 MCH 28.2 MCHC 31.8 L RDW 13.4 Plt Count 295 MPV 9.1 Neut # (Auto) 11.7 H Lymph # (Auto) 0.6 L [place] # (Auto) 0.5 Eos # (Auto) 0.2 Baso # (Auto) 0.1 Absolute Nucleated RBC 0.00 Nucleated RBC % 0.0 VBG pH VBG pCO2 VBG pO2 VBG HCO3 VBG Total CO2 VBG O2 Saturation VBG Base Excess Sodium 135 Potassium 3.7 Chloride 97 L Carbon Dioxide 25 Anion Gap 13.0 BUN 24 H Creatinine 0.7 Estimated GFR (MDRD) 82 L Glucose 209 H Lactic Acid Calcium 8.5 Phosphorus 2.6 Magnesium 1.7 Total Bilirubin 1.0 AST 23 ALT 21 Alkaline Phosphatase 78 Total Protein 6.8 Albumin 3.6 Globulin 3.2 Albumin/Globulin Ratio 1.1 Urine Color Urine Clarity Urine pH Ur Specific [place] Urine Protein Urine Glucose (UA) Urine Ketones Urine Occult Blood Urine Nitrite Urine Bilirubin Urine Urobilinogen Ur Leukocyte Esterase Urine RBC Urine WBC Urine WBC Clumps Ur Squamous Epith Cells Urine Bacteria Ur Microscopic Review Urine Culture Comments Nasal Adenovirus (PCR) NOT DETECTED Nasal B. parapertussis DNA (PCR) NOT DETECTED Nasal Coronavir 229E PCR NOT DETECTED Nasal Coronavir HKU1 PCR NOT DETECTED Nasal Coronavir NL63 PCR NOT DETECTED Nasal Coronavir OC43 PCR NOT DETECTED Nasal Enterovir/Rhinovir PCR NOT DETECTED Nasal Influenza B PCR NOT DETECTED Nasal Influenza A PCR NOT DETECTED Nasal Parainfluen 1 PCR NOT DETECTED Nasal Parainfluen 2 PCR NOT DETECTED Nasal Parainfluen 3 PCR NOT DETECTED Nasal Parainfluen 4 PCR NOT DETECTED Nasal RSV (PCR) NOT DETECTED Nasal B.pertussis DNA PCR NOT DETECTED Nasal C.pneumoniae (PCR) NOT DETECTED Shun Human Metapneumo PCR NOT DETECTED Nasal M.pneumoniae (PCR) NOT DETECTED Nasal SARS-CoV-2 (PCR) DETECTED A 07/28/22 07/28/22 07/28/22 06:51 06:55 07:05 WBC RBC Hgb Hct MCV MCH MCHC RDW Plt Count MPV Neut # (Auto) Lymph # (Auto) [place] # (Auto) Eos # (Auto) Baso # (Auto) Absolute Nucleated RBC Nucleated RBC % VBG pH 7.487 H VBG pCO2 35.2 L VBG pO2 93.9 H VBG HCO3 26.0 VBG Total CO2 27.1 VBG O2 Saturation 96.7 H VBG Base Excess 2.8 H Sodium Potassium Chloride Carbon Dioxide Anion Gap BUN Creatinine Estimated GFR (MDRD) Glucose Lactic Acid 1.7 Calcium Phosphorus Magnesium Total Bilirubin AST ALT Alkaline Phosphatase Total Protein Albumin Globulin Albumin/Globulin Ratio Urine Color YELLOW Urine Clarity SCL Urine pH 6.0 Ur Specific [place] 1.025 Urine Protein 30 H Urine Glucose (UA) 250 H Urine Ketones NEGATIVE Urine Occult Blood MODERATE H Urine Nitrite POSITIVE H Urine Bilirubin NEGATIVE Urine Urobilinogen 0.2 (NORMAL) Ur Leukocyte Esterase NEGATIVE Urine RBC 6-10 H Urine WBC >25 H Urine WBC Clumps PRESENT Ur Squamous Epith Cells FEW Squamous Urine Bacteria Many H Ur Microscopic Review INDICATED Urine Culture Comments INDICATED Nasal Adenovirus (PCR) Nasal B. parapertussis DNA (PCR) Nasal Coronavir 229E PCR Nasal Coronavir HKU1 PCR Nasal Coronavir NL63 PCR Nasal Coronavir OC43 PCR Nasal Enterovir/Rhinovir PCR Nasal Influenza B PCR Nasal Influenza A PCR Nasal Parainfluen 1 PCR Nasal Parainfluen 2 PCR Nasal Parainfluen 3 PCR Nasal Parainfluen 4 PCR Nasal RSV (PCR) Nasal B.pertussis DNA PCR Nasal C.pneumoniae (PCR) Shun Human Metapneumo PCR Nasal M.pneumoniae (PCR) Nasal SARS-CoV-2 (PCR) PD Medical Decision Making - ED course ED course: 77-year-old woman with clinical pneumonia presents with shaking chills. PSI score 65. X-ray negative, but I suspect she has a an occult retrocardiac pneumonia given her exam. Her at the bedside at approximately 8 AM and we discussed. 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 Prefers Rocephin and Levaquin. Azithromycin had already been ordered, but canceled in deference after discussion. Also she had some azithromycin a few days ago so not unreasonable. She also turned up positive for COVID. I discussed this with the patient and her . She had symptomatic COVID 3 weeks ago, so she may still just be testing positive from that. We discussed antiviral drugs and they declined. Departure - Departure Disposition: Home, Self Care Clinical Impression: Pyelonephritis Pneumonia Qualifiers: Pneumonia type: due to unspecified organism Laterality: left Lung location: lower lobe of lung Qualified Code(s): J18.9 - Pneumonia, unspecified organism Condition: Good Record reviewed to determine appropriate education?: Yes Instructions: Pyelonephritis Dc, ED Pneumonia Adult Prescriptions: levoFLOXacin [Levofloxacin] 750 mg PO DAILY #9 tablet Comments: You were seen today for cough and shaking chills. You were running a fever. Clinically it sounds like you have a left lower lobe pneumonia. We did not see that on x-ray, but x-ray is not 100% sensitive for pneumonia especially in that spot because it is behind the heart. You also have evidence of a urinary tract infection. You were still positive for COVID but we agree that it is likely persistently positive from COVID 3 weeks ago.. Blood work showing a white count of 13 with left shift, chemistries basically normal, lactate normal. You received a dose of IV ceftriaxone and levofloxacin here. Blood cultures are pending and will call if positive. We will culture your urine, the results should be done in 48-72 hours. If an antibiotic change is necessary we will call you. Return if worse in the meantim e, especially if you develop increasing flank pain, fevers, or cannot keep down the medication. Follow-up with your doctor on Friday for recheck.
[2022-07-28 07:37] LABS: BILIRUBIN,URINE NEGATIVE (NEGATIVE); GLUCOSE, URINE (UA) 250 mg/dL (NEGATIVE); KETONES,URINE (UA) NEGATIVE (NEGATIVE); LEUKOCYTE ESTERASE, URINE NEGATIVE (NEGATIVE); NITRITE,URINE POSITIVE (NEGATIVE); OCCULT BLOOD,URINE MODERATE (NEGATIVE); PROTEIN,URINE 30 mg/dL (NEGATIVE); UROBILINOGEN,URINE 0.2 (NORMAL) E.U./dL (NORMAL)
[2022-07-28 07:38] LABS: CLARITY,URINE SCL (CLEAR)
[2022-07-28] MEDS ORDERED: AZITHROMYCIN 250 MG TABLET PO STA (07:40)
[2022-07-28] MEDS ORDERED: cefTRIAXone 1 GM in SODIUM CHLORIDE 0.9% MINIBAG 100 ML IV STA (07:40)
[2022-07-28 07:49] LABS: BACTERIA,URINE Many /HPF (None Seen); SQUAMOUS EPITHELIAL CELL,UR FEW Squamous (<= Few); WBC CLUMPS,URINE PRESENT; WBC,URINE >25 /HPF (0-5)
--- NOTE | 2022-07-28 07:49 | XRAY Report ---
PROCEDURE: Chest 1 View X-Ray INDICATIONS: cough TECHNIQUE: One view of the chest was acquired. COMPARISON: Chest radiographs 02/13/2021. FINDINGS: Surgical changes and devices: None. Lungs and pleura: No pleural effusions or pneumothorax. Lungs are clear. Mediastinum: Mediastinal contours appear normal. Heart size is upper limits of normal. Bones and chest wall: No suspicious bony lesions. Overlying soft tissues appear unremarkable. IMPRESSION: No acute cardiopulmonary abnormality. Reviewed by: Lincoln Yung MD on 07/28/2022 7:47 AM PST Approved by: Lincoln Yung MD on 07/28/2022 7:47 AM PST Station ID: [id number]
[2022-07-28 08:01] LABS: B. PARAPERTUSSIS- RESP PCR PAN NOT DETECTED; B. PERTUSSIS- RESP PCR PANEL NOT DETECTED; C. PNEUMONIAE- RESP PCR PANEL NOT DETECTED; CORONAVIRUS 229E-RESP PCR NOT DETECTED; CORONAVIRUS HKU1-RESP PCR NOT DETECTED; CORONAVIRUS NL63-RESP PCR NOT DETECTED; CORONAVIRUS OC43-RESP PCR NOT DETECTED; HUMAN METAPNEUMOVIRUS NOT DETECTED; INFLUENZA A- RESP PCR PANEL NOT DETECTED; INFLUENZA B - RESP PCR PANEL NOT DETECTED; M. PNEUMONIAE- RESP PCR PANEL NOT DETECTED; PARAINFLUENZA VIRUS 1 NOT DETECTED; PARAINFLUENZA VIRUS 2 NOT DETECTED; PARAINFLUENZA VIRUS 3 NOT DETECTED; PARAINFLUENZA VIRUS 4 NOT DETECTED; RHINOVIRUS/ENTEROVIRUS NOT DETECTED; RSV- RESP PCR PANEL NOT DETECTED
[2022-07-28] MEDS ORDERED: levoFLOXacin 750 MG/150 ML 750 MG/150 ML BAG IV STA (08:01)
[2022-07-28 08:04] LABS: SARS-CoV-2 -RESP PCR PANEL DETECTED
[2022-07-28] MEDS ORDERED: SODIUM CHLORIDE 0.9% 1,000 ML IV STA (09:09)
[2022-07-28 10:15] VITALS: BP 157/57
== END 2022-07-28 10:36 | disposition home or self-care (01) ==
LOC: EDUNIT# → ED 06:35
DX: U07.1 COVID-19 (principal); N12 Tubulo-interstitial nephritis, not specified as acute or chronic; J18.9 Pneumonia, unspecified organism; I10 Essential (primary) hypertension; E11.9 Type 2 diabetes mellitus without complications; Z79.4 Long term (current) use of insulin
CPT/HCPCS: 36415; 71045; 80053; 81001; 82803; 83605; 83735; 84100; 85025; 87040; 87086; 87181; 87633; 96365; 96366; 96367; 99284; A9270; 81003